=== PATIENT | female | born 1965 | race Hispanic/Latino ===

== ENCOUNTER → 2021-01-13 06:34 | Outpatient (CLI) | payer OTHER, SELFPAY ==
--- NOTE | 2021-01-13 | DI.MRI.S_ITS ---
PROCEDURE: MR HEAD/BRAIN WO/W CON INDICATIONS: Paresthesia of skin; Other fatigue TECHNIQUE: Noncontrast axial T1 spin echo, axial T2 fast spin echo, sagittal and axial FLAIR, coronal T2 fast spin echo, axial gradient echo, axial diffusion and ADC through the brain. After the administration of contrast, axial and coronal 3D VIBE or T1 spin echo with fat saturation through the brain. COMPARISON: None. FINDINGS: Image quality: Excellent. CSF Spaces: Basal cisterns are patent. No extra-axial fluid collections. Ventricles are normal in size and shape. Brain: No midline shift. No intracranial bleeds or masses. No abnormal intracranial enhancement. The brainstem appears normal. Diffusion-weighted images demonstrate no acute ischemic insults. No chronic ischemic insults. Normal intravascular flow voids are present. Dural sinuses demonstrate normal postcontrast enhancement. Skull and face: Calvarial marrow is normal in signal. Orbits appear normal. Sinuses: Sinuses and mastoids appear clear. IMPRESSION: 1. No intracranial disease process. 2. No abnormal intracranial mass or mass effect. 3. No suspicious postcontrast enhancement. Dictated by: Lauren Douglas MD, PhD on 01/13/2021 at 10:57 Approved by: Lauren Douglas MD, PhD on 01/13/2021 at 11:00
== END ==
PROVIDERS: PCP Student in an Organized Health Care Education/Training Program; Referring Provider Student in an Organized Health Care Education/Training Program; Visit Provider Student in an Organized Health Care Education/Training Program
DX: R53.83 Other fatigue (principal); R20.2 Paresthesia of skin
CPT/HCPCS: 70553; A9579

== ENCOUNTER 2022-12-06 17:40 | Emergency (ER) | payer OTHER, SELFPAY ==
[2022-12-06] VITALS (8 sets, daily range): BP systolic 128–164; BP diastolic 70–80; PULSE 91–109; RESP 20; TEMP 36.8; O2SAT 94–99; BMI 37.4
--- NOTE | 2022-12-06 18:02 | DI.RAD.S_ITS ---
PROCEDURE: XR CHEST 2V INDICATIONS: cough, h/o plural effusion TECHNIQUE: 2 views of the chest were acquired. COMPARISON: None. FINDINGS: Surgical changes and devices: None. Lungs and pleura: Large right pleural effusion, possibly loculated. Elevation of the right hemidiaphragm may also be present versus subpulmonic component of effusion. Nonspecific right basilar opacities present. No definite pneumothorax. Mediastinum: Cardiac silhouette is at the upper limit of normal in size. Bones and chest wall: No suspicious bony abnormalities. Soft tissues appear unremarkable. IMPRESSION: Large right pleural effusion, possibly loculated. Elevation of the right hemidiaphragm may also be present versus subpulmonic component of effusion. Nonspecific right basilar opacities present. Dictated by: Shalom Copeland M.D. on 12/06/2022 at 18:37 Approved by: Shalom Copeland M.D. on 12/06/2022 at 18:39
--- NOTE | 2022-12-06 18:24 | ED_ITS ---
HPI - General Adult <Abad Gallardo DO - Last Filed: 12/08/22 06:19> General Chief complaint: Upper Respiratory Symptoms Stated complaint: sent for abx, abnormal lung xray Time Seen by Provider: 12/06/22 18:14 Source: patient Mode of arrival: Ambulatory History of Present Illness HPI narrative: 57-year-old female nonsmoker with history of fibromyalgia presents at the request of her primary care provider for evaluation of 10 days of worsening cough and shortness of breath. She has right-sided rib pain in the absence of injury. 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 She denies any recent travel or injury. She has no history of prior lung infections, cancer, blood clot. She has had significant cough, shortness of breath and frequent post-tussive emesis, she has lost 7 lb in the past week. Related Data Allergies Allergy/AdvReac Type Severity Reaction Status Date / Time No Known Drug Allergies Allergy Verified 12/06/22 17:51 Review of Systems <Abad Gallardo DO - Last Filed: 12/08/22 06:19> Review of Systems Narrative: GENERAL: See HPI HEENT: Denies sinus pain, ear pain, sore throat, difficulty swallowing, dizziness. RESPIRATORY: See HPI CARDIOVASCULAR: Denies chest pain, palpitations, orthopnea, edema, GASTROINTESTINAL: See HPI : Denies dysuria, frequency, incontinence, hematuria, urinary retention. MUSCULOSKELETAL: denies weakness, joint pain, or bony pain SKIN: Denies rash, skin lesions, or other NEUROLOGIC: Denies weakness, headache, numbness, change in speech, confusion, seizures, incoordination. PSYCHIATRIC: No concerning psychosocial issues. 12 point review of systems is negative except for those stated above Patient History <Abad Gallardo DO - Last Filed: 12/08/22 06:19> Social History Smoking Status: Never smoker Smoking Status: Never smoker Substance Use Type: does not use Exam <Abad Gallardo DO - Last Filed: 12/08/22 06:19> Narrative Exam Narrative: GENERAL: [57] year old patient appears stated age. Well-developed patient, in mild distress. HEAD: Atraumatic. Normocephalic. EYES: Pupils equal round and reactive. Extraocular motions intact. No scleral icterus. No injection or drainage. ENT: Nose without bleeding, purulent drainage. Throat without erythema, tonsillar hypertrophy or exudate. Airway patent. NECK: Trachea midline. Non tender CARDIOVASCULAR: Regular rate and rhythm without murmurs, gallops, or rubs. RESPIRATORY: Decreased breath sounds right mid lung and down with some rhonchorous sounds at the superior aspect GASTROINTESTINAL: Abdomen soft, non-tender, nondistended. EXTREMITIES: No edema or joint tenderness. BACK: Nontender without deformity or crepitance. No flank tenderness. NEURO: AOx3. SKIN: No rash or erythema of visible areas Initial Vital Signs Initial Vital Signs: Vital Signs Temperature 98.3 F 12/06/22 17:51 Pulse Rate 103 H 12/06/22 17:51 Respiratory Rate 20 12/06/22 17:51 Blood Pressure 128/70 12/06/22 17:51 Pulse Oximetry 97 12/06/22 17:51 Oxygen Delivery Method Room Air 12/06/22 17:51 <Lonny Denise MD - Last Filed: 12/12/22 10:24> Initial Vital Signs Initial Vital Signs: Vital Signs Temperature 98.3 F 12/06/22 17:51 Pulse Rate 103 H 12/06/22 17:51 Respiratory Rate 20 12/06/22 17:51 Blood Pressure 128/70 12/06/22 17:51 Pulse Oximetry 97 12/06/22 17:51 Oxygen Delivery Method Room Air 12/06/22 17:51 Course <Abad Gallardo DO - Last Filed: 12/08/22 06:19> Orders Ordered: Discontinued Medications Sodium Chloride (Normal Saline 0.9%) 500 mls @ 1,000 mls/hr IV BOLUS ONE Stop: 12/06/22 18:49 Last Infusion: 12/06/22 21:56 Dose: 0 mls/hr Documented By: Admin: 12/06/22 21:26 Dose: 1,000 mls/hr Documented By: NATI Piperacillin Sod/Tazobactam (Sod 4.5 gm/ Sodium Chloride) 100 mls @ 200 mls/hr IV NOW ONE Stop: 12/07/22 00:26 Last Infusion: 12/07/22 01:20 Dose: 0 mls/hr Documented By: Admin: 12/07/22 00:50 Dose: 200 mls/hr Documented By: NATI POTASSIUM CHLORIDE IN WATER (Potassium Cl 10 Meq/100 Ml Jeniffer) 10 meq in 100 mls @ 100 mls/hr IV Q1H [facility] Stop: 12/07/22 04:29 Last Infusion: 12/07/22 05:12 Dose: 0 mls/hr Documented By: Admin: 12/07/22 04:08 Dose: 100 mls/hr Documented By: Infusion: 12/07/22 04:00 Dose: 100 mls/hr Documented By: Admin: 12/07/22 03:00 Dose: 100 mls/hr Documented By: Infusion: 12/07/22 02:50 Dose: 100 mls/hr Documented By: Admin: 12/07/22 01:50 Dose: 100 mls/hr Documented By: Infusion: 12/07/22 01:49 Dose: 100 mls/hr Documented By: Admin: 12/07/22 00:49 Dose: 100 mls/hr Documented By: NATI Piperacillin Sod/Tazobactam (Sod 3.375 gm/ Sodium Chloride) 100 mls @ 25 mls/hr IV Q8H [facility] Last Admin: 12/07/22 14:48 Dose: Not Given Documented By: Infusion: 12/07/22 11:23 Dose: 0 mls/hr Documented By: Admin: 12/07/22 07:03 Dose: 25 mls/hr Documented By: NATIVIDAD Vital Signs Vital signs: Vital Signs - 8 hr 12/07/22 10:00 12/07/22 10:00 12/07/22 10:30 Pulse Rate 94 H Respiratory Rate Blood Pressure 144/67 H 139/65 Pulse Oximetry 98 12/07/22 10:30 12/07/22 11:00 12/07/22 11:00 Pulse Rate 101 H 100 H Respiratory Rate Blood Pressure 133/63 Pulse Oximetry 98 98 12/07/22 11:30 12/07/22 11:30 12/07/22 12:00 Pulse Rate 98 H Respiratory Rate Blood Pressure 143/65 H 133/63 Pulse Oximetry 97 12/07/22 12:00 12/07/22 12:30 12/07/22 12:30 Pulse Rate 101 H 101 H Respiratory Rate 20 Blood Pressure 138/65 Pulse Oximetry 96 96 12/07/22 13:00 12/07/22 13:00 12/07/22 13:30 Pulse Rate 104 H Respiratory Rate Blood Pressure 135/71 133/66 Pulse Oximetry 96 12/07/22 13:30 12/07/22 14:42 12/07/22 14:42 Pulse Rate 104 H 102 H Respiratory Rate Blood Pressure 159/70 H Pulse Oximetry 94 98 <Lonny Denise MD - Last Filed: 12/12/22 10:24> Orders Ordered: Discontinued Medications Sodium Chloride (Normal Saline 0.9%) 500 mls @ 1,000 mls/hr IV BOLUS ONE Stop: 12/06/22 18:49 Last Infusion: 12/06/22 21:56 Dose: 0 mls/hr Documented By: Admin: 12/06/22 21:26 Dose: 1,000 mls/hr Documented By: NATI Piperacillin Sod/Tazobactam (Sod 4.5 gm/ Sodium Chloride) 100 mls @ 200 mls/hr IV NOW ONE Stop: 12/07/22 00:26 Last Infusion: 12/07/22 01:20 Dose: 0 mls/hr Documented By: Admin: 12/07/22 00:50 Dose: 200 mls/hr Documented By: NATI POTASSIUM CHLORIDE IN WATER (Potassium Cl 10 Meq/100 Ml Jeniffer) 10 meq in 100 mls @ 100 mls/hr IV Q1H [facility] Stop: 12/07/22 04:29 Last Infusion: 12/07/22 05:12 Dose: 0 mls/hr Documented By: Admin: 12/07/22 04:08 Dose: 100 mls/hr Documented By: Infusion: 12/07/22 04:00 Dose: 100 mls/hr Documented By: Admin: 12/07/22 03:00 Dose: 100 mls/hr Documented By: Infusion: 12/07/22 02:50 Dose: 100 mls/hr Documented By: Admin: 12/07/22 01:50 Dose: 100 mls/hr Documented By: Infusion: 12/07/22 01:49 Dose: 100 mls/hr Documented By: Admin: 12/07/22 00:49 Dose: 100 mls/hr Documented By: NATI Piperacillin Sod/Tazobactam (Sod 3.375 gm/ Sodium Chloride) 100 mls @ 25 mls/hr IV Q8H [facility] Last Admin: 12/07/22 14:48 Dose: Not Given Documented By: Infusion: 12/07/22 11:23 Dose: 0 mls/hr Documented By: Admin: 12/07/22 07:03 Dose: 25 mls/hr Documented By: NATIVIDAD Vital Signs Vital signs: Vital Signs - 8 hr 12/07/22 10:00 12/07/22 10:00 12/07/22 10:30 Pulse Rate 94 H Respiratory Rate Blood Pressure 144/67 H 139/65 Pulse Oximetry 98 12/07/22 10:30 12/07/22 11:00 12/07/22 11:00 Pulse Rate 101 H 100 H Respiratory Rate Blood Pressure 133/63 Pulse Oximetry 98 98 12/07/22 11:30 12/07/22 11:30 12/07/22 12:00 Pulse Rate 98 H Respiratory Rate Blood Pressure 143/65 H 133/63 Pulse Oximetry 97 12/07/22 12:00 12/07/22 12:30 12/07/22 12:30 Pulse Rate 101 H 101 H Respiratory Rate 20 Blood Pressure 138/65 Pulse Oximetry 96 96 12/07/22 13:00 12/07/22 13:00 12/07/22 13:30 Pulse Rate 104 H Respiratory Rate Blood Pressure 135/71 133/66 Pulse Oximetry 96 12/07/22 13:30 12/07/22 14:42 12/07/22 14:42 Pulse Rate 104 H 102 H Respiratory Rate Blood Pressure 159/70 H Pulse Oximetry 94 98 Medical Decision Making <Abad Gallardo, DO - Last Filed: 12/08/22 06:19> Lab Data 12/06/22 20:35 12/06/22 20:35 Labs: Lab Results 12/06/22 12/06/22 12/06/22 Range/Units 20:35 20:35 20:35 WBC 16.9 H (4.5-11.0) X10^3/uL RBC 4.18 (4.0-5.2) X10^6/uL Hgb 10.0 L (12.0-16.0) g/dL Hct 30.7 L (36-46) % MCV 73.5 L (80-100) fL MCH 23.8 L (26-34) PG MCHC 32.4 (30-36) % RDW 14.0 (11.6-14.8) % Plt Count 630 H (150-400) X10^3/uL Neut % (Auto) 76.5 H (50-75) % Lymph % (Auto) 15.2 L (25-40) % Mchenry % (Auto) 6.9 (3-14) % Eos % (Auto) 0.6 L (2-4) % Baso % (Auto) 0.8 (0-2) % Neut # (Auto) 32543 H (1299-7740) /uL Lymph # (Auto) 2600 (6429-8327) /uL Mchenry # (Auto) 1200 H (0-900) /uL Eos # (Auto) 100 (0-450) /uL Baso # (Auto) 100 (0-100) /uL Sodium 138 (137-145) mmol/L Potassium 3.0 L (3.4-5.1) mmol/L Chloride 98 (98-107) mmol/L Carbon Dioxide 33 H (22-32) mmol/L BUN 8 (7-17) mg/dL Creatinine 0.74 (0.52-1.04) mg/dL Estimated GFR > 60 (>60) mL/min BUN/Creatinine Ratio 10.8 (6-22) Glucose 111 H (70-100) mg/dL Lactate 0.8 (0.7-2.1) mmol/L Calcium 8.3 L (8.4-10.2) mg/dL Magnesium 2.2 (1.6-2.3) mg/dL Total Bilirubin 0.6 (0.2-1.3) mg/dL AST 65 H (14-36) IU/L ALT 66 H (<35) IU/L Alkaline Phosphatase 183 H (38-126) U/L Total Creatine Kinase 171 H (30-135) U/L CK-MB (CK-2) 0.94 (<2.37) ng/mL CK-MB (CK-2) Rel Index 0.5 L (1.5-5.0) % Troponin I < 0.012 (0.01-0.034) ng/mL NT-Pro-B Natriuret Pep 120 (<125) pg/mL Total Protein 8.6 H (6.3-8.2) g/dL Albumin 3.4 L (3.5-5.0) g/dL Globulin 5.2 H (1.7-4.1) g/dL Albumin/Globulin Ratio 0.7 L (1.0-2.8) Lipase 62 (23-300) U/L Urine RBC (0-5/HPF) Urine WBC (0-5/HPF) Ur Squamous Epith Cells (0-5/HPF) Urine Bacteria (None) Ur Culture Indicated? Chlamy pneumoniae PCR (Not Detect) Adenovirus (PCR) (Not Detect) B. pertussis DNA (PCR) (Not Detecte) B.parapertussis DNA PCR (Not Detecte) Coronavirus OC43 (PCR) (Not Detect) Coronavirus HKU1 (PCR) (Not Detect) Coronavirus 229E (PCR) (Not Detect) SARS-CoV-2 (PCR) (Not Detecte) Coronavirus NL63 (PCR) (Not Detect) Human Metapneumovir PCR (Not Detect) Influenza Type A (PCR) (Not Detect) Influenza Type B (PCR) (Not Detect) M. pneumoniae (PCR) (Not Detect) Parainfluenza 1 (PCR) (Not Detect) Parainfluenza 2 (PCR) (Not Detect) Parainfluenza 3 (PCR) (Not Detect) Parainfluenza 4 (PCR) (Not Detect) RSV (PCR) (Not Detect) Entero/Rhino (PCR) (Not Detect) 12/06/22 12/06/22 12/06/22 Range/Units 20:35 20:41 22:48 WBC (4.5-11.0) X10^3/uL RBC (4.0-5.2) X10^6/uL Hgb (12.0-16.0) g/dL Hct (36-46) % MCV (80-100) fL MCH (26-34) PG MCHC (30-36) % RDW (11.6-14.8) % Plt Count (150-400) X10^3/uL Neut % (Auto) (50-75) % Lymph % (Auto) (25-40) % Mchenry % (Auto) (3-14) % Eos % (Auto) (2-4) % Baso % (Auto) (0-2) % Neut # (Auto) (9159-2296) /uL Lymph # (Auto) (7055-0327) /uL Mchenry # (Auto) (0-900) /uL Eos # (Auto) (0-450) /uL Baso # (Auto) (0-100) /uL Sodium (137-145) mmol/L Potassium (3.4-5.1) mmol/L Chloride (98-107) mmol/L Carbon Dioxide (22-32) mmol/L BUN (7-17) mg/dL Creatinine (0.52-1.04) mg/dL Estimated GFR (>60) mL/min BUN/Creatinine Ratio (6-22) Glucose (70-100) mg/dL Lactate 0.9 (0.7-2.1) mmol/L Calcium (8.4-10.2) mg/dL Magnesium (1.6-2.3) mg/dL Total Bilirubin (0.2-1.3) mg/dL AST (14-36) IU/L ALT (<35) IU/L Alkaline Phosphatase (38-126) U/L Total Creatine Kinase (30-135) U/L CK-MB (CK-2) (<2.37) ng/mL CK-MB (CK-2) Rel Index (1.5-5.0) % Troponin I (0.01-0.034) ng/mL NT-Pro-B Natriuret Pep (<125) pg/mL Total Protein (6.3-8.2) g/dL Albumin (3.5-5.0) g/dL Globulin (1.7-4.1) g/dL Albumin/Globulin Ratio (1.0-2.8) Lipase (23-300) U/L Urine RBC None seen (0-5/HPF) Urine WBC 1-5/hpf (0-5/HPF) Ur Squamous Epith Cells 1-5 /hpf (0-5/HPF) Urine Bacteria None seen (None) Ur Culture Indicated? Cult not indicated Chlamy pneumoniae PCR Not detected (Not Detect) Adenovirus (PCR) Not detected (Not Detect) B. pertussis DNA (PCR) Not detected (Not Detecte) B.parapertussis DNA PCR Not detected (Not Detecte) Coronavirus OC43 (PCR) Not detected (Not Detect) Coronavirus HKU1 (PCR) Not detected (Not Detect) Coronavirus 229E (PCR) Not detected (Not Detect) SARS-CoV-2 (PCR) Not detected (Not Detecte) Coronavirus NL63 (PCR) Not detected (Not Detect) Human Metapneumovir PCR Not detected (Not Detect) Influenza Type A (PCR) Not detected (Not Detect) Influenza Type B (PCR) Not detected (Not Detect) M. pneumoniae (PCR) Not detected (Not Detect) Parainfluenza 1 (PCR) Not detected (Not Detect) Parainfluenza 2 (PCR) Not detected (Not Detect) Parainfluenza 3 (PCR) Not detected (Not Detect) Parainfluenza 4 (PCR) Not detected (Not Detect) RSV (PCR) Not detected (Not Detect) Entero/Rhino (PCR) Not detected (Not Detect) Urine Dip Bedside Urine Glucose Negative Bedside Urine Bilirubin - Negative Bedside Urine Ketone - Negative Urine Specific Asbury 1.015 Bedside Urine Occult Blood +/- Bedside Urine pH 6.0 Bedside Urine Protein +/- 15 Bedside Urine Urobilinogen +/- 1mg Bedside Urine Nitrite - Negative Bedside Urine Leukocytes - Negative Esterase Point of care testing: Urine Dip Bedside Urine Glucose Negative Bedside Urine Bilirubin - Negative Bedside Urine Ketone - Negative Urine Specific Asbury 1.015 Bedside Urine Occult Blood +/- Bedside Urine pH 6.0 Bedside Urine Protein +/- 15 Bedside Urine Urobilinogen +/- 1mg Bedside Urine Nitrite - Negative Bedside Urine Leukocytes - Negative Esterase MDM Narrative Medical decision making narrative: [57] year old patient presents with worsening cough, shortness of breath and ri ght-sided pain Multiple etiologies for patient's symptoms considered including, but not limited to: [Loculated effusion, empyema, pulmonary abscess, pneumonia versus other] No Prior Charts reviewed in our EMR Primary Historian: patient Labs reviewed and interpreted by myself: Patient with leukocytosis, relative left shift, hemoglobin of 10, baseline unknown. Potassium 3.0, replaced with K rider, LFTs slightly elevated Imaging reviewed: CT of chest demonstrates a moderate size loculated right pleural effusion, additional loculated fluid collection in right lung base with Internal foci of gas consistent with abscess versus empyema, further right lower lobe consolidation suggestive of pneumonia Consultations: Hospitalist and Gen Surg at [facility] consulted, not appropriate for hospitalization here, will need transfer calls to [facility], [place], [facility], , [facility], /[facility], [facility]. NO available beds. Will be in contact <Lonny Denise MD - Last Filed: 12/12/22 10:24> Lab Data Labs: Lab Results 12/06/22 12/06/22 12/06/22 Range/Units 20:35 20:35 20:35 WBC 16.9 H (4.5-11.0) X10^3/uL RBC 4.18 (4.0-5.2) X10^6/uL Hgb 10.0 L (12.0-16.0) g/dL Hct 30.7 L (36-46) % MCV 73.5 L (80-100) fL MCH 23.8 L (26-34) PG MCHC 32.4 (30-36) % RDW 14.0 (11.6-14.8) % Plt Count 630 H (150-400) X10^3/uL Neut % (Auto) 76.5 H (50-75) % Lymph % (Auto) 15.2 L (25-40) % Mchenry % (Auto) 6.9 (3-14) % Eos % (Auto) 0.6 L (2-4) % Baso % (Auto) 0.8 (0-2) % Neut # (Auto) 64435 H (0038-6056) /uL Lymph # (Auto) 2600 (3801-1768) /uL Mchenry # (Auto) 1200 H (0-900) /uL Eos # (Auto) 100 (0-450) /uL Baso # (Auto) 100 (0-100) /uL Sodium 138 (137-145) mmol/L Potassium 3.0 L (3.4-5.1) mmol/L Chloride 98 (98-107) mmol/L Carbon Dioxide 33 H (22-32) mmol/L BUN 8 (7-17) mg/dL Creatinine 0.74 (0.52-1.04) mg/dL Estimated GFR > 60 (>60) mL/min BUN/Creatinine Ratio 10.8 (6-22) Glucose 111 H (70-100) mg/dL Lactate 0.8 (0.7-2.1) mmol/L Calcium 8.3 L (8.4-10.2) mg/dL Magnesium 2.2 (1.6-2.3) mg/dL Total Bilirubin 0.6 (0.2-1.3) mg/dL AST 65 H (14-36) IU/L ALT 66 H (<35) IU/L Alkaline Phosphatase 183 H (38-126) U/L Total Creatine Kinase 171 H (30-135) U/L CK-MB (CK-2) 0.94 (<2.37) ng/mL CK-MB (CK-2) Rel Index 0.5 L (1.5-5.0) % Troponin I < 0.012 (0.01-0.034) ng/mL NT-Pro-B Natriuret Pep 120 (<125) pg/mL Total Protein 8.6 H (6.3-8.2) g/dL Albumin 3.4 L (3.5-5.0) g/dL Globulin 5.2 H (1.7-4.1) g/dL Albumin/Globulin Ratio 0.7 L (1.0-2.8) Lipase 62 (23-300) U/L Urine RBC (0-5/HPF) Urine WBC (0-5/HPF) Ur Squamous Epith Cells (0-5/HPF) Urine Bacteria (None) Ur Culture Indicated? Chlamy pneumoniae PCR (Not Detect) Adenovirus (PCR) (Not Detect) B. pertussis DNA (PCR) (Not Detecte) B.parapertussis DNA PCR (Not Detecte) Coronavirus OC43 (PCR) (Not Detect) Coronavirus HKU1 (PCR) (Not Detect) Coronavirus 229E (PCR) (Not Detect) SARS-CoV-2 (PCR) (Not Detecte) Coronavirus NL63 (PCR) (Not Detect) Human Metapneumovir PCR (Not Detect) Influenza Type A (PCR) (Not Detect) Influenza Type B (PCR) (Not Detect) M. pneumoniae (PCR) (Not Detect) Parainfluenza 1 (PCR) (Not Detect) Parainfluenza 2 (PCR) (Not Detect) Parainfluenza 3 (PCR) (Not Detect) Parainfluenza 4 (PCR) (Not Detect) RSV (PCR) (Not Detect) Entero/Rhino (PCR) (Not Detect) 12/06/22 12/06/22 12/06/22 Range/Units 20:35 20:41 22:48 WBC (4.5-11.0) X10^3/uL RBC (4.0-5.2) X10^6/uL Hgb (12.0-16.0) g/dL Hct (36-46) % MCV (80-100) fL MCH (26-34) PG MCHC (30-36) % RDW (11.6-14.8) % Plt Count (150-400) X10^3/uL Neut % (Auto) (50-75) % Lymph % (Auto) (25-40) % Mchenry % (Auto) (3-14) % Eos % (Auto) (2-4) % Baso % (Auto) (0-2) % Neut # (Auto) (0414-0741) /uL Lymph # (Auto) (9570-8846) /uL Mchenry # (Auto) (0-900) /uL Eos # (Auto) (0-450) /uL Baso # (Auto) (0-100) /uL Sodium (137-145) mmol/L Potassium (3.4-5.1) mmol/L Chloride (98-107) mmol/L Carbon Dioxide (22-32) mmol/L BUN (7-17) mg/dL Creatinine (0.52-1.04) mg/dL Estimated GFR (>60) mL/min BUN/Creatinine Ratio (6-22) Glucose (70-100) mg/dL Lactate 0.9 (0.7-2.1) mmol/L Calcium (8.4-10.2) mg/dL Magnesium (1.6-2.3) mg/dL Total Bilirubin (0.2-1.3) mg/dL AST (14-36) IU/L ALT (<35) IU/L Alkaline Phosphatase (38-126) U/L Total Creatine Kinase (30-135) U/L CK-MB (CK-2) (<2.37) ng/mL CK-MB (CK-2) Rel Index (1.5-5.0) % Troponin I (0.01-0.034) ng/mL NT-Pro-B Natriuret Pep (<125) pg/mL Total Protein (6.3-8.2) g/dL Albumin (3.5-5.0) g/dL Globulin (1.7-4.1) g/dL Albumin/Globulin Ratio (1.0-2.8) Lipase (23-300) U/L Urine RBC None seen (0-5/HPF) Urine WBC 1-5/hpf (0-5/HPF) Ur Squamous Epith Cells 1-5 /hpf (0-5/HPF) Urine Bacteria None seen (None) Ur Culture Indicated? Cult not indicated Chlamy pneumoniae PCR Not detected (Not Detect) Adenovirus (PCR) Not detected (Not Detect) B. pertussis DNA (PCR) Not detected (Not Detecte) B.parapertussis DNA PCR Not detected (Not Detecte) Coronavirus OC43 (PCR) Not detected (Not Detect) Coronavirus HKU1 (PCR) Not detected (Not Detect) Coronavirus 229E (PCR) Not detected (Not Detect) SARS-CoV-2 (PCR) Not detected (Not Detecte) Coronavirus NL63 (PCR) Not detected (Not Detect) Human Metapneumovir PCR Not detected (Not Detect) Influenza Type A (PCR) Not detected (Not Detect) Influenza Type B (PCR) Not detected (Not Detect) M. pneumoniae (PCR) Not detected (Not Detect) Parainfluenza 1 (PCR) Not detected (Not Detect) Parainfluenza 2 (PCR) Not detected (Not Detect) Parainfluenza 3 (PCR) Not detected (Not Detect) Parainfluenza 4 (PCR) Not detected (Not Detect) RSV (PCR) Not detected (Not Detect) Entero/Rhino (PCR) Not detected (Not Detect) Urine Dip Bedside Urine Glucose Negative Bedside Urine Bilirubin - Negative Bedside Urine Ketone - Negative Urine Specific [place] 1.015 Bedside Urine Occult Blood +/- Bedside Urine pH 6.0 Bedside Urine Protein +/- 15 Bedside Urine Urobilinogen +/- 1mg Bedside Urine Nitrite - Negative Bedside Urine Leukocytes - Negative Esterase Point of care testing: Urine Dip Bedside Urine Glucose Negative Bedside Urine Bilirubin - Negative Bedside Urine Ketone - Negative Urine Specific [place] 1.015 Bedside Urine Occult Blood +/- Bedside Urine pH 6.0 Bedside Urine Protein +/- 15 Bedside Urine Urobilinogen +/- 1mg Bedside Urine Nitrite - Negative Bedside Urine Leukocytes - Negative Esterase [facility] Medical decision making narrative: [57] year old patient presents with worsening cough, shortness of breath and right-sided pain Multiple etiologies for patient's symptoms considered including, but not limited to: [Loculated effusion, empyema, pulmonary abscess, pneumonia versus other] No Prior Charts reviewed in our EMR Primary Historian: patient Labs reviewed and interpreted by myself: Patient with leukocytosis, relative left shift, hemoglobin of 10, baseline unknown. Potassium 3.0, replaced with K rider, LFTs slightly elevated Imaging reviewed: CT of chest demonstrates a moderate size loculated right pleural effusion, additional loculated fluid collection in right lung base with Internal foci of gas consistent with abscess versus empyema, further right lower lobe consolidation suggestive of pneumonia Consultations: Hospitalist and Gen Surg at [facility] consulted, not appropriate for hospitalization here, will need transfer calls to [facility], [place], [facility], , [facility], /[facility], [facility]. NO available beds. Will be in contact [Howie] Contacted thoracic surgery at [facility], accepting pt for admission to facilitate further management, subsequently transferred in stable condition. Critical Care Time <Abad Gallardo DO - Last Filed: 12/08/22 06:19> Critical Care Time Critical Care Time: Yes Total Critical Care Time: 45 Attestation: The high probability of a clinically significant, sudden or life threatening deterioration of the [CV] system(s) required my full and direct attention, intervention and personal management. The aggregate critical care time was [45] minutes. This time is in addition to time spent performing reported procedures but includes the following: [x] Data Review and interpretation [x] Patient assessment and monitoring of vital signs x[] Documentation [x] Medication orders and management Discharge Plan Departure Patient Disposition: [facility] Clinical Impression: Loculated pleural effusion, Empyema lung Referrals: Ruy Bland DO [Primary Care Provider] -
[2022-12-06 20:52] LABS: Add Manual Diff / Slide Review NO; Basophils Absolute Auto 100 /uL (0-100); Basophils Percent Auto 0.8 % (0-2); Eosinophils Absolute Auto 100 /uL (0-450); Eosinophils Percent Auto 0.6 % (2-4); Hematocrit 30.7 % (36-46); Lymphocytes Absolute Auto 2600 /uL (1100-4500); Lymphocytes Percent Auto 15.2 % (25-40); Mean Corpuscular HGB Conc 32.4 % (30-36); Mean Corpuscular Hemoglobin 23.8 PG (26-34); Mean Corpuscular Volume 73.5 fL (80-100); Monocytes Absolute Auto 1200 /uL (0-900); Monocytes Percent Auto 6.9 % (3-14); Neutrophils Absolute Auto 12900 /uL (1500-7000); Neutrophils Percent Auto 76.5 % (50-75); Platelet Count 630 X10^3/uL (150-400); Red Blood Cell Count 4.18 X10^6/uL (4.0-5.2); White Blood Cell Count 16.9 X10^3/uL (4.5-11.0)
[2022-12-06 21:00] LABS: Lactate (Lactic Acid) 0.8 mmol/L (0.7-2.1)
[2022-12-06 21:01] LABS: Alanine Aminotransferase 66 IU/L (<35); Albumin 3.4 g/dL (3.5-5.0); Albumin Globulin Ratio 0.7 (1.0-2.8); Alkaline Phosphatase 183 U/L (38-126); Aspartate Aminotransferase 65 IU/L (14-36); BUN Creatinine Ratio 10.8 (6-22); Bilirubin Total 0.6 mg/dL (0.2-1.3); Blood Urea Nitrogen 8 mg/dL (7-17); Calcium 8.3 mg/dL (8.4-10.2); Carbon Dioxide 33 mmol/L (22-32); Chloride 98 mmol/L (98-107); Creatine Kinase 171 U/L (30-135); Estimated Glomerular Filt Rate > 60 mL/min (>60); Globulin 5.2 g/dL (1.7-4.1); Glucose 111 mg/dL (70-100); HEMOLYSIS < 15 (0-50); Lipase 62 U/L (23-300); Magnesium 2.2 mg/dL (1.6-2.3); Sodium 138 mmol/L (137-145); Total Protein 8.6 g/dL (6.3-8.2)
--- NOTE | 2022-12-06 21:07 | DI.CT.S_ITS ---
PROCEDURE: CT CHEST ABD PEL W CON INDICATIONS: complex effusion, abnormal LFTs TECHNIQUE: After the administration of intravenous contrast, axial sections acquired from the supraclavicular neck to the pubic symphysis. Coronal and sagittal reformats were performed. For radiation dose reduction, the following was used: automated exposure control, adjustment of mA and/or kV according to patient size. COMPARISON: [facility], CR, XR CHEST 2V, 12/06/2022, 18:03. FINDINGS: Image quality: There is mild motion artifact limiting evaluation. CHEST: Lower Neck: No lymphadenopathy by size criteria. Thyroid: Visualized thyroid demonstrates no discrete nodules. Axillae: No lymphadenopathy by size criteria. Chest Wall: Unremarkable. Lungs and Airways: There is confluent consolidation and compressive atelectasis within the right lung base. Mild dependent atelectasis demonstrated in the left lung. There is mild bronchial wall thickening within the right lung base. The trachea and central airways are patent. Pleura: No pneumothorax. There is a moderate loculated right pleural effusion with associated mild pleural thickening and enhancement. A loculated fluid collection is also demonstrated in the right lung base in the right lower lobe or along the right hemidiaphragm measuring up to 5.3 x 2.5 cm in transverse dimension on series 2, image 35 and approximately 1.8 cm in craniocaudal dimension as seen on sagittal series 6, image 59 and coronal series 5, image 42. There are internal foci of gas with air-fluid levels. The findings are consistent with a pulmonary abscess or an empyema. Heart: Heart size is normal. No pericardial effusion. Thoracic Vessels: The aorta and pulmonary arteries are normal in size. Mediastinum and Yulisa: No lymphadenopathy by size criteria. Esophagus: No wall thickening. No hiatal hernia. ABDOMEN: Liver: No mass lesion. There is mild focal fatty infiltration anteriorly in the left hepatic lobe along the falciform ligament. Gallbladder: Within normal limits without calcified gallstones. Biliary ducts: No biliary ductal dilatation. Pancreas: Unremarkable. Spleen: Normal in size. Adrenal Glands: No adrenal nodules. Kidneys and Ureters: No hydronephrosis. Stomach and Bowel: Stomach, small bowel loops, and colon are normal in caliber and wall thickness. Peritoneum: No abnormal intraperitoneal fluid. No free air. Ventral Wall: No hernia. Abdominal Nodes: No retroperitoneal or mesenteric adenopathy by size criteria. Vessels: Aorta and inferior vena cava are normal in size. PELVIS: Pelvic Organs: Unremarkable. Bladder: Unremarkable. Pelvic Nodes: No enlarged lymph nodes. Miscellaneous: No inguinal hernias are seen. Bones: Visualized osseous structures demonstrate no suspicious focal lesions. IMPRESSION: 1. Moderate-sized loculated right pleural effusion. 2. Additional loculated fluid collection in the right lung base containing internal foci of gas is consistent with a pulmonary abscess or an empyema. 3. Right lower lobe consolidation suggestive of pneumonia as well as atelectasis and scarring in the right lung base. Dictated by: Sukumar Wayne M.D. on 12/06/2022 at 22:14 Approved by: Sukumar Wayne M.D. on 12/06/2022 at 22:20
[2022-12-06 21:09] LABS: Bacteria Urine None Seen; Culture Indicated Urine Cult Not Indicated; RBC Urine None Seen (0-5/HPF); Squamous Epithelial Cell Urine 1-5 /HPF (0-5/HPF); WBC Urine 1-5/HPF (0-5/HPF)
[2022-12-06 21:12] LABS: NT-proBNP (BNP-Adult 18+) 120 pg/mL (<125); Troponin I < 0.012 ng/mL (0.01-0.034)
[2022-12-06 21:16] LABS: CKMB % Relative Index 0.5 % (1.5-5.0); Creatine Kinase MB 0.94 ng/mL (<2.37)
[2022-12-06] MEDS: SODIUM CHLORIDE 0.9% 500 ML 1000 ML IV (21:26)
[2022-12-06 21:54] LABS: Adenovirus Not Detected (Not Detect); B. parapertussis Not Detected (Not Detecte); Bordetella pertussis Not Detected (Not Detecte); Chlamydophila pneumoniae Not Detected (Not Detect); Coronavirus 229E Not Detected (Not Detect); Coronavirus HKU1 Not Detected (Not Detect); Coronavirus NL 63 Not Detected (Not Detect); Coronavirus OC43 Not Detected (Not Detect); Human Metapneumovirus Not Detected (Not Detect); Human Rhinovirus/Enterovirus Not Detected (Not Detect); Influenza A Not Detected (Not Detect); Influenza B Not Detected (Not Detect); Mycoplasma pneumoniae Not Detected (Not Detect); Parainfluenza Virus 1 Not Detected (Not Detect); Parainfluenza Virus 2 Not Detected (Not Detect); Parainfluenza Virus 3 Not Detected (Not Detect); Parainfluenza Virus 4 Not Detected (Not Detect); Respiratory Syncytial Virus Not Detected (Not Detect); SARS- CoV-2 Not Detected (Not Detecte)
[2022-12-06 23:07] LABS: Lactate (Lactic Acid) 0.9 mmol/L (0.7-2.1)
[2022-12-07] VITALS (34 sets, daily range): BP systolic 125–185; BP diastolic 59–78; PULSE 88–107; RESP 16–20; O2SAT 94–99
--- NOTE | 2022-12-07 00:12 | PC.NURSE ---
Addendum entered by Halima Sellers CNA 12/07/22 06:08: Katy Rutherford called and asked us to send a facesheet and push images. May have a bed today, but it would be later in the day. Did as asked. Original Note: MANAGER EMERGENCY DEPARTMENT note: Attempting to transfer patient out. Called the following places and got the following responses: [facility]: [address]- no beds. They are full bursting at the seams. [facility] 2330- no beds. But took information. Faxed over a facesheet. [facility]: [address]- no beds. Put on waitlist. [facility]: [address] didn't have beds, but was going to look if they had an extra med surg bed and then they hung up on me. [facility]: [facility]- [id number]- on waitlist. Closed currently to transfer, but took information and would have a better idea about day shift staffing around [phone]. /[facility]: [address]. Faxed over facesheet. They said they'd call us back. [facility]: [address]- no beds/boarding in ER. [facility]- left message. Dr. Gallardo spoke to them when I was busy.
[2022-12-07] MEDS: POTASSIUM CHLORIDE IN WATER 10 MEQ/100 ML PIGGYBACK 100 MEQ IV ×4 (00:49→04:08)
[2022-12-07] MEDS: PIPERACILLIN/TAZO 4.5 GM in SODIUM CHLORIDE 0.9% 100 ML IV (00:50)
[2022-12-07] MEDS: PIPERACILLIN/TAZO 3.375 GM in SODIUM CHLORIDE 0.9% 100 ML IV (07:03)
--- NOTE | 2022-12-07 15:02 | PC.NURSE ---
This patient was transferred to [facility] via [facility]. A BLS crew was selected by Dr. Denise. This patient had an infusion of Zosyn scheduled at 1445. BLS crew unable to manage any medication that is on a infusion pump. This RN asked Dr. Denise if he wanted to reschedule for a [facility] ambulance crew or hold this antibiotic. Dr. Denise gave verbal order to hold this antibiotic so that the patient could be transferred without delay. This was communicated in report to both ILAN Samuels from [facility] and CRISTIAN Rodriguez at [facility] transfer center. I gave both individuals the phone number for this emergency department if there is any further questions. Patient departed with all belongings 1450.
== END 2022-12-07 14:50 | disposition short-term general hospital (02) ==
PROVIDERS: Emergency Medicine; Emergency Provider Emergency Medicine; PCP Student in an Organized Health Care Education/Training Program
DX: J90 Pleural effusion, not elsewhere classified (principal); J86.9 Pyothorax without fistula; R07.81 Pleurodynia; R79.89 Other specified abnormal findings of blood chemistry; Z20.822 Contact with and (suspected) exposure to COVID-19
CPT/HCPCS: 36415; 71046; 71260; 74177; 80053; 81003; 81015; 82550; 82553; 83605; 83690; 83735; 83880; 84484; 85025; 87040; 87633; 96361; 96365; 99284; 99291; J2543; Q9967